=== PATIENT | male | born 1940 | race Caucasian/White ===

== ENCOUNTER 2018-10-12 15:32 | Inpatient (IN) ==
[2018-10-12] MEDS ORDERED: XYLOCAINE 2% JELLY UROJECT TOP ONE (17:40)
[2018-10-12 18:01] LABS: URINE SOURCE CATH
[2018-10-12 18:09] LABS: BILIRUBIN URINE NEGATIVE (NEGATIVE); BLOOD URINE NEGATIVE (NEGATIVE); COLOR YELLOW; GLUCOSE URINE NEGATIVE (NEGATIVE); KETONE URINE NEGATIVE (NEGATIVE); LEUKOCYTES URINE SMALL (NEGATIVE); NITRITE URINE NEGATIVE (NEGATIVE); PH URINE 5.5; PROTEIN URINE NEGATIVE (NEGATIVE); SP GRAVITY URINE 1.008; TURBIDITY URINE CLEAR (CLEAR); UR EPITHELIAL CELLS <10 /HPF (<10); URINE BACTERIA NEGATIVE /HPF; URINE RBC <10 /HPF (<10); UROBILINOGEN URINE NORMAL (NORMAL)
[2018-10-12] MEDS: NS 1,000 ML IV SCH (18:23)
--- NOTE | 2018-10-12 18:40 | CONSULTATION ---
DATE OF CONSULTATION: 10/12/2018 ATTENDING AND REFERRING PHYSICIAN: Dr. Ray. HISTORY OF PRESENT ILLNESS: This 77-year-old male has a history of enlarged prostate with obstructive voiding. He also has a remote history of urinary retention. He recently had an NM and has been on Lasix, Aldactone and also Eliquis and Plavix. He was seen in the Urology Clinic last week and he was given a prescription for Flomax 0.4 mg a day. The patient states he has not started that. His baseline creatinine is around 1.8 and several days ago it was found to be 4.4. His renal ultrasound revealed an enlarged prostate but his bladder was distended to 2055 mL. His postvoid residual was 1533 mL. He states he has been having a lot of urinary incontinence. He has had no hematuria. He has no history of kidney stones. PAST MEDICAL HISTORY: Coronary artery disease, hypertension, gastroesophageal reflux disease, elevated cholesterol. CURRENT MEDICATIONS: Documented on the chart and will include Flomax 0.4 mg a day. PAST SURGICAL HISTORY: Hernia repair, tonsillectomy and adenoidectomy, transrectal prostate ultrasound and biopsies secondary to an elevated PSA. SOCIAL HISTORY: No tobacco or alcohol use. ALLERGIES: He is allergic to penicillin. REVIEW OF SYSTEMS: He denies any recent chest pains, pulmonary or bowel problems. PHYSICAL EXAMINATION: General: A mildly obese, age apparent, normally developed, white male, oriented in all ways and cooperative. HEENT: Normal for age. Lungs: Clear. Cardiovascular: Regular rate and rhythm. Abdomen: Mildly obese, soft, nontender. No hepatosplenomegaly or masses. Normal bowel sounds. : Uncircumcised male. Foreskin retracts. Meatus is normal. Both testes are down. Small bilateral hydroceles. No inguinal hernias. Rectal: Exam on 10/05/2018 had normal sphincter tone. His prostate was about 70 g, smooth, and symmetric. Extremities: No clubbing, cyanosis, or edema. Neuro: No focal deficits. DIAGNOSTIC DATA: Renal ultrasound is as noted in the history of present illness. His CBC has a white count of 8.34, hemoglobin of 10.6, hematocrit of 33, and platelets are 275,000. Serum electrolytes are normal. BUN 25, creatinine 4.4. IMPRESSION: 1. Enlarged prostate with obstructive voiding as well as marked urinary retention. 2. Renal insufficiency. PLAN: 1. The patient was prepped and draped sterilely and approximately 20 mL of 2% viscous lidocaine was placed in the urethra and held for 5 minutes. The patient states he is very tender in that area. A 16-Macedonian Carolina catheter was gently passed through the patient's urethra and then manipulated through the large prostate and into the bladder. The Carolina was placed all the way to its hub. In just a minute, the urine returned through the Carolina catheter. It did appear clear. 10 mL sterile water were placed in the Carolina balloon. Urine will be obtained from the Carolina catheter for UA, C and S. 2. Flomax 0.4 mg a day 1st dose tonight. Thank you for this consultation. cc: MD Usman Khan MD
--- NOTE | 2018-10-12 19:37 | HISTORY AND PHYSICAL ---
CHIEF COMPLAINT: Obstructive uropathy. HISTORY OF PRESENT ILLNESS: Mr. Lerner is a 77-year-old white gentleman with multiple complex medical problems, including recent AL, CVA, hypertension, anemia, hyperlipidemia, gastritis, and reflux disease. Patient was in his usual state of health, recently discharged from [facility], then patient went to assisted for rehab. Patient went home a few days ago. Patient came to see me in the office. I did blood work which did reveal normal BUN, but creatinine in was around 4. I entertained possibility of obstructive uropathy. I repeated blood work. It was still abnormal. His BUN was 25 and creatinine 4.4. Potassium was 3.9. I did a renal ultrasound which did reveal evidence of enlarged prostate. Postvoid residual bladder urine volume was more than 1500 mL. Bilateral dilated renal collecting system of unknown acuity. On detailed questioning, patient did have urinary hesitancy, frequency, and bedtime incontinence. Patient's usual creatinines staying around 1.8 to 1.9. Patient denied any nausea or vomiting. No high- grade fever. Patient did have some chills. Because of worsening renal function and ultrasound suggestive of obstructive uropathy, I decided to admit the patient for further care. Patient denied any typical chest pain, palpitation, orthopnea, or PND. Mild cough. No expectoration or hemoptysis. No dysphagia or odynophagia, unquantified weight loss. No heat or cold intolerance. No runny nose, stuffy nose, sinus drainage. At times, arthritic pain in the knee. Clinically, patient was doing fairly well. He denied any blood in the urine, blood in the stool. No hemoptysis. No hematemesis. ALLERGIES: Penicillin. HOME MEDICATIONS: Include: 1. Plavix. 2. Eliquis. 3. Amiodarone. 4. Lasix. 5. Protonix. 6. Potassium. 7. Aldactone 25 mg. 8. Flomax. Patient took Flomax only 1 day, and then he stopped taking it because he was feeling dizzy. PERSONAL HISTORY: . Lives with the . Nonsmoker. Denied alcohol or substance abuse. Fairly independent in activities of daily living. PAST MEDICAL HISTORY: Significant for: 1. Coronary artery disease and CABG many years ago. 2. Recent acute inferior wall myocardial infarction, requiring stent placement. 3. Paroxysmal atrial fibrillation. 4. Congestive heart failure. Ejection fraction was about 20 to 25 percent. 5. BPH. 6. Hyperlipidemia. 7. Encephalopathy. 8. Acute kidney injury. FAMILY HISTORY: Significant for father had AL at age 74. PAST SURGICAL HISTORY: 1. Patient had CABG in 2003. 2. Hernia repair in the past. PHYSICAL EXAMINATION: GENERAL: Elderly white gentleman in no acute distress. VITAL SIGNS: Blood pressure 140/90, pulse 70, respirations 18, temperature normal. SKIN: Senile turgor. HEAD: Atraumatic, normocephalic. EYES: [place] conjunctivae. Anicteric sclerae. Extraocular muscle movement normal. Fundus cannot be penetrated. ENT: Good oral hygiene. No tonsillopharyngeal congestion or exudate. Ears and nose benign. NECK: Supple. No JVD, thyromegaly, or lymphadenopathy. CHEST: Bilateral good air entry present. Bibasilar crepitation. Occasional wheezing. CARDIOVASCULAR: S1 and S2, irregularly irregular. No gallop or thrill. ABDOMEN: Soft. No distention. Bowel sounds present. No organomegaly or mass. EXTREMITIES: No cyanosis, clubbing. No acute DVT. Peripheral pulsation intact. Minimal swelling around ankle. CONTACT CENTER ENGINEER: Alert, awake, able to move all 4 limbs. MUSCULOSKELETAL: No acute synovitis of the knee joints. LAB DATA: His BUN was 25, creatinine 4.4. Blood sugar was 104. ALT was 8. CBC: Hemoglobin 10.6, hematocrit 33, WBC count 8.34, platelet count 275,000. Urinalysis result reviewed. CONSIDERATION: 1. Obstructive uropathy. 2. Acute kidney injury. 3. Benign prostatic hypertrophy. 4. Recent myocardial infarction. 5. Paroxysmal atrial fibrillation. 6. Hypertension. 7. Congestive heart failure. Ejection fraction was around 22%. 8. Osteoarthritis. 9. Gastritis. 10. Reflux disease. 11. Acute on chronic kidney disease. 12. Cardiac arrhythmia. PLAN: 1. Admit patient. 2. Hydration. 3. Urology consult to put catheter because of enlarged prostate. 4. Fall precaution. 5. Repeat blood work in the morning. 6. Overall plan discussed with patient and . They are in agreement. Patient's presentation discussed with urologist, and he is going to consider putting Carolina catheter. cc: Usman Ray MD
[2018-10-12] MEDS ORDERED: FLOMAX PO SCH (21:00)
[2018-10-12] MEDS: ELIQUIS PO SCH (22:06)
[2018-10-12] MEDS: FLOMAX PO SCH (22:07)
[2018-10-13] MEDS: PROTONIX PO SCH (06:18)
--- NOTE | 2018-10-13 06:51 | PROGRESS NOTE ---
DATE: 10/13/2018 Mr. Lerner is feeling better. He denied any fever or chills. The patient had a little bit blood tinged urine. No nausea or vomiting. Oral intake is fair. No typical chest pain or unusual shortness of breath. The patient had 2750 mL of urine came out with his Carolina catheter. Patient admitted with urinary retention and obstructive uropathy. The patient had enlarged prostate. OBJECTIVE: Vital Signs: Blood pressure 112/58, pulse 71, respiration 18. Temperature 98.3 degrees. Neck: Is supple. No JVD. Lungs: Bilateral good air entry present. CVS: S1 and S2 heard. 2/6 systolic murmur at the apex. Abdomen: Soft, globular. Bowel sounds present. Extremities: No swelling in the legs. MATERIAL CHASER: Alert, awake able to move all 4 limbs. CONSIDERATIONS: 1. Urinary retention, most likely due to enlarged prostate. 2. Obstructive uropathy. 3. Patient had recent CT. 4. Paroxysmal atrial fibrillation. 5. History of CVA. 6. Hypothyroidism. PLAN: We will continue current treatment. Monitor his labs. Fall precaution. Discussed with Dr. Damico if clinical condition permits, we will plan discharging patient home tomorrow. Patient's urine had 10 to 20 WBC but nitrite was negative. Small leukocytosis. Waiting for urine culture. cc: Usman Ray MD
[2018-10-13 07:54] LABS: MCH 29.6 PG (27-31); MCHC 32.1 g/dL (33-37); MCV 92.1 FL (81-99); MPV 10.5 FL (7.4-10.4); RBC 3.04 XMIL (4.7-6.1); RDW 18.7 % (11.5-14.5); WBC 6.45 X1000 (4.8-10.8)
--- NOTE | 2018-10-13 08:06 | Diag Imaging Result Doc PS360 ---
EXAM: CHEST-2 VIEWS HISTORY: hypoxia TECHNIQUE: Chest two views COMPARISON: None. FINDINGS: The lungs are well expanded. The heart is not enlarged. There are sternal wires. The vessels are not distended. There are no infiltrates. Likely minimal scarring in the lungs. No pleural effusions. IMPRESSION: No acute abnormality. Electronically signed by Wilfred Benito 10/13/2018 8:04 AM
[2018-10-13 08:15] LABS: ALB/GLOB RATIO 0.9; ALBUMIN 3.1 g/dL (3.5-5.0); CALCIUM 8.7 mg/dL (8.8-10.2); CREATININE 3.7 mg/dL (0.7-1.2); POTASSIUM 3.6 mmol/L (3.5-5.1); TOTAL BILIRUBIN 0.37 mg/dL (0.20-1.00); TOTAL PROTEIN 6.5 g/dL (6.3-8.3)
[2018-10-13] MEDS ORDERED: LASIX PO SCH (09:00)
[2018-10-13 10:07] LABS: INR 1.39; PROTIME 17.3 Seconds (11.0-16.0); PTT 30.9 Seconds (22.3-41.8)
[2018-10-13] MEDS: CORDARONE PO SCH (10:27)
[2018-10-13] MEDS: ALDACTONE PO SCH (10:27)
[2018-10-13] MEDS: ELIQUIS PO SCH ×2 (10:28→19:59)
[2018-10-13] MEDS: KLOR-CON PO SCH (10:28)
[2018-10-13] MEDS: NS 1,000 ML IV SCH ×2 (10:31→20:00)
[2018-10-13] MEDS: PLAVIX PO SCH (17:23)
[2018-10-13] MEDS: FLOMAX PO SCH (19:59)
[2018-10-13 22:26] LABS: ALB/GLOB RATIO 1.1; ALBUMIN 3.3 g/dL (3.5-5.0); CALCIUM 8.6 mg/dL (8.8-10.2); CREATININE 3.5 mg/dL (0.7-1.2); POTASSIUM 3.6 mmol/L (3.5-5.1); TOTAL BILIRUBIN 0.29 mg/dL (0.20-1.00); TOTAL PROTEIN 6.4 g/dL (6.3-8.3)
[2018-10-14] MEDS: PROTONIX PO SCH (05:59)
[2018-10-14 06:22] LABS: BASO# 0.04 X1000 (0.0-0.2); BASO% 0.6 % (0.0-0.8); EOS# 0.49 X1000 (0.0-0.7); EOS% 7.5 % (0.0-10.0); HEMOGLOBIN 9.7 g/dL (14.0-18.0); LYMPH# 1.14 X1000 (1.2-3.4); LYMPH% 17.4 % (20.5-51.1); MCH 29.8 PG (27-31); MCHC 32.3 g/dL (33-37); MONO# 0.54 X1000 (0.11-0.59); MONO% 8.2 % (1.7-9.3); MPV 10.8 FL (7.4-10.4); NEUT# 4.35 X1000 (1.4-6.5); NEUT% 66.3 % (42.2-75.2); PLT 230 X1000 (130-400); RBC 3.26 XMIL (4.7-6.1); RDW 18.4 % (11.5-14.5); WBC 6.56 X1000 (4.8-10.8)
--- NOTE | 2018-10-14 07:13 | PROGRESS NOTE ---
DATE: 10/14/2018 SUBJECTIVE: Mr. Lerner is feeling better. He denied any fever or chills. No chest pain or palpitations. Denied any shortness of breath. No blood in the catheter. Oral intake is getting better. Leg swelling almost normal. OBJECTIVE: Vital Signs: Noted. Neck: Supple. No JVD. Lungs: Bilateral good air entry present. Cardiovascular: S1 and S2, irregular. A 2/6 systolic murmur at the apex. Abdomen: Soft, nontender. Bowel sounds present. Extremities: No cyanosis, clubbing. No acute DVT. CREATIVE WRITING PROFESSOR: Alert, awake. Able to move all 4 limbs. The patient presented with obstructive uropathy. His creatinine is gradually improving. The patient is getting gentle hydration. The patient does have systolic type congestive heart failure. Ejection fraction was around 22 to 25 percent. Recent myocardial infarction and stent placement. History of hyperlipidemia. Blood work done today. BUN was 24, creatinine 3.5, calcium 8.6, potassium 3.6. Overall plan discussed with patient and . ASSESSMENT: His problems includes: 1. Obstructive uropathy. 2. Congestive heart failure. 3. Coronary artery disease. 4. Osteoarthritis. 5. Paroxysmal atrial fibrillation. PLAN: Plan is to hopefully discharge patient home soon with a Carolina catheter. Follow up with Dr. Damico in the office. cc: Usman Ray MD
[2018-10-14] MEDS: CORDARONE PO SCH (08:11)
[2018-10-14] MEDS: ALDACTONE PO SCH (08:11)
[2018-10-14] MEDS: PLAVIX PO SCH (08:12)
[2018-10-14] MEDS: ELIQUIS PO SCH ×2 (08:12→20:17)
[2018-10-14] MEDS: KLOR-CON PO SCH (08:12)
[2018-10-14] MEDS: NS 1,000 ML IV SCH (10:26)
[2018-10-14 18:42] LABS: CALCIUM 8.4 mg/dL (8.8-10.2); CREATININE 2.5 mg/dL (0.7-1.2); POTASSIUM 3.6 mmol/L (3.5-5.1)
[2018-10-14] MEDS: FLOMAX PO SCH (20:17)
[2018-10-15] MEDS: PROTONIX PO SCH ×2 (05:47→06:32)
[2018-10-15] MEDS ORDERED: MAGNESIUM SULFATE 2 GM/S.W.I. 2 GM/50 ML IVPB IV ONE (06:32)
[2018-10-15] MEDS: KLOR-CON PO SCH (07:54)
[2018-10-15] MEDS: ALDACTONE PO SCH (07:55)
[2018-10-15] MEDS: CORDARONE PO SCH (07:55)
[2018-10-15] MEDS: ELIQUIS PO SCH (07:55)
[2018-10-15] MEDS: PLAVIX PO SCH (07:55)
[2018-10-15 08:06] VITALS: BP 123/73
--- NOTE | 2018-10-16 06:03 | DISCHARGE SUMMARY ---
ADMISSION DATE: 10/13/2018 DISCHARGE DATE: 10/15/2018 SUBJECTIVE: Mr. Lerner is feeling better. FINAL DISCHARGE DIAGNOSES: 1. Obstructive uropathy. 2. Enlarged prostate. 3. Recent myocardial infarction. 4. Atrial fibrillation. 5. Anemia of chronic disease. 6. Hypokalemia. 7. Gastritis and reflux disease. 8. Osteoarthritis. 9. Congestive heart failure due to systolic dysfunction and also diastolic dysfunction. 10. Benign prostatic hypertrophy. HISTORY: Mr. Lerner is a 77-year-old white gentleman admitted with obstructive uropathy. The patient had urinary retention and deterioration of the renal function. I repeated blood work and renal ultrasound. Renal ultrasound did reveal a urinary retention, and evidence of obstructive uropathy. I decided to admit the patient for further care. Urology consult obtained with Dr. Damico. The patient had a Carolina catheter placed. Clinically, patient is doing better. His renal function improved. The patient was feeling better. We taught the patient how to use the leg bag for Carolina catheter. I had lengthy discussion with the patient about Carolina catheter care and fall precautions, watch for bleeding as the patient is on Plavix and Eliquis. Patient and understood. Overall, patient received maximum benefit of hospitalization. The patient needed gentle hydration because of his congestive heart failure. Overall, the patient is doing better. I am planning to discharge him home today. Lab data done today, potassium was 3.6. His magnesium was 1.2. I am going to supplement magnesium. We are going to resume his home health. PHYSICAL EXAMINATION: Vital signs noted. Neck: Supple. No JVD. Lungs: Bilateral good air entry present. CVS: S1 and S2 heard. 2/6 systolic murmur at the apex. Abdomen: Soft, nontender. Bowel sounds present. HOGSHEAD ROLLER: Alert, awake, and able to move all 4 limbs. LABORATORY DATA: Last BUN was 20 and creatinine 2.5. Magnesium was 1.2. Admission was 20, creatinine 2.5, and magnesium 1.2. Overall, patient is doing better. His CBC revealed hemoglobin 9.7, hematocrit was 30. Advised patient to have follow up with me in 1 week. The patient have a followup appointment with Dr. Damico on the . He is going to give him a catheter trial. Patient is on Flomax. Continue home medicine. In case of more distress, call us back or go to the emergency room. cc: Usman Ray MD
== END 2018-10-15 10:00 | disposition home health service (06) | DRG 683 ==
LOC: DIRADM 15:32 → INTOOBSV 15:32 → 4N 15:40
PROVIDERS: ADMIT Internal Medicine; ATTEND Internal Medicine

== ENCOUNTER 2019-04-20 06:48 | Day surgery (SDC) ==
[2019-03-17 14:21] LABS: HEMATOCRIT 42.9 % (42.0-52.0); HEMOGLOBIN 13.6 g/dL (14.0-18.0); MCH 31.4 PG (27-31); MCHC 31.7 g/dL (33-37); MCV 99.1 FL (81-99); MPV 10.5 FL (7.4-10.4); RBC 4.33 XMIL (4.7-6.1); RDW 14.9 % (11.5-14.5); WBC 0.52 X1000 (4.8-10.8)
[2019-03-17 16:49] LABS: CALCIUM 9.2 mg/dL (8.8-10.2); CREATININE 1.5 mg/dL (0.7-1.2)
[2019-04-20] MEDS ORDERED: DIPRIVAN 1% ONE (07:35)
[2019-04-20] MEDS ORDERED: LEVAQUIN 500 MG/D5W 500 MG/100 ML IVPB ONE (07:45)
[2019-04-20] MEDS ORDERED: LR 1,000 ML ONE (07:45)
[2019-04-20] MEDS ORDERED: PEPCID ONE (08:27)
[2019-04-20] MEDS ORDERED: REGLAN ONE (08:27)
[2019-04-20] MEDS ORDERED: B & O 15A SUPP ONE (09:28)
[2019-04-20] MEDS ORDERED: FENTANYL ONE (09:31)
[2019-04-20] MEDS ORDERED: ZOFRAN ONE (10:07)
[2019-04-20] MEDS ORDERED: DECADRON ONE (10:07)
[2019-04-20] MEDS ORDERED: EPHEDRINE ONE (10:08)
[2019-04-20] MEDS ORDERED: ZEMURON ONE ×3 (10:08→11:59)
[2019-04-20] MEDS ORDERED: ROBINUL ONE (12:36)
[2019-04-20] MEDS ORDERED: NEOSTIGMINE ONE (12:36)
--- NOTE | 2019-04-20 14:41 | OPERATIVE NOTE ---
PROCEDURE DATE: 04/20/2019 SURGEON: Madhu Damico MD. PREOPERATIVE DIAGNOSIS: Urinary retention secondary to an enlarged prostate. POSTOPERATIVE DIAGNOSIS: Urinary retention secondary to an enlarged prostate. PROCEDURE PERFORMED: 1. Cystoscopic exam, Transurethral section of the prostate. 2. Place suprapubic tube. ANESTHESIA: General via laryngeal mask. FINDINGS: Cystoscopic exam: Urethra - greater than 27-Czech without stricture. Prostate - collapsing lateral lobes, elevated bladder neck, large median lobe. Length approximately 7 cm. Bladder - normal ureteral orifices bilaterally. Grade 1 to 2 trabeculations. No diverticula. INDICATION FOR PROCEDURE: This 78-year-old male has a long history of obstructive voiding symptoms. He was on maximum medical therapy and developed urinary retention. He has had an indwelling Carolina catheter and has decided on transurethral resection of the and placement of a suprapubic tube. DESCRIPTION OF PROCEDURE: After informed consent was obtained the patient and him receiving IV antibiotics, he was taken the main OR cystoscopy room, placed in supine position. General anesthesia via laryngeal mask was achieved. He was then placed in the low lithotomy position and prepped and draped in the usual sterile fashion for lower abdominal surgery and cystoscopic exam. A 21-Czech sheath cystoscope was passed through the patient's urethra, prostate and into the bladder with findings noted above. The cystoscope was removed. A 27-Czech continuous flow resectoscope sheath was placed. The bipolar loop was placed. Both ureteral orifices were visualized as well as the verumontanum. The median lobe was taken down and then the resection was started at the 6 o'clock position, going from the level of the bladder neck to the level of the verumontanum, proceeding in a counterclockwise direction up to the 2 o'clock position. There were very large lateral lobes but these were completely taken down. After the 2 o'clock the patient was reached, the resection was started back down at the 6 o'clock position, going to the level of the bladder neck, level of the verumontanum, proceeding in a clockwise direction up to the 10 o'clock position. Tissue from the anterior prostatic urethra was removed between the 2 o'clock and 10 o'clock position at the level of bladder neck, level of the verumontanum. The chips were removed from the bladder with the [employer] evacuators. Hemostasis was achieved with electrocautery. After the chips were completely removed, again, both ureteral orifices were visualized and intact, the verumontanum was visualized and intact. The bladder was left distended. A stab incision was made 2 fingerbreadths above the pubic bone. The [place] suprapubic tube introducer was passed through the stab incision and into the bladder under direct vision. The trocar was removed. A 16- Czech Carolina was passed through the trocar and into the bladder. 10 mL sterile water were placed in the Carolina balloon. The trocar was removed. The suprapubic tube was sutured to the skin with 0 silk. A plug was placed. The resectoscope sheath was removed. A 24-Czech 3-way Carolina was passed through the patient's urethra, prostate, into the bladder. 40 mL of sterile water were placed in the Carolina' balloon and Carolina was placed to gravity drain. The efflux was light kristan in color. Continuous bladder irrigation of normal saline was started. The efflux completely cleared. A 16-A B and O suppository was placed per rectum. He tolerated the procedure well. Estimated blood loss 400 mL. He was taken to recovery room in good condition. cc: Madhu Damico MD
[2019-04-20] MEDS ORDERED: LABETALOL IV PRN (14:45)
[2019-04-20] MEDS ORDERED: BENADRYL LIQUID PO PRN (14:45)
[2019-04-20] MEDS ORDERED: NORCO-10 PO PRN (14:45)
[2019-04-20] MEDS ORDERED: B & O 15A SUPP PR PRN (14:45)
[2019-04-20] MEDS ORDERED: NS 1,000 ML IV SCH (14:45)
[2019-04-20] MEDS ORDERED: NORCO-7.5 PO PRN (14:45)
[2019-04-20] MEDS ORDERED: NORCO-5 PO PRN (14:45)
[2019-04-20] MEDS ORDERED: SODIUM CHLORIDE 0.9% INJ PRN (15:00)
[2019-04-20] MEDS ORDERED: PHENERGAN IV PRN (15:00)
[2019-04-20] MEDS ORDERED: NITROGLYCERIN SL PRN (15:09)
[2019-04-20] MEDS ORDERED: PNEUMOVAX 23 IM ONE (16:56)
[2019-04-20] MEDS ORDERED: LIPITOR PO SCH (21:00)
[2019-04-20] MEDS: COLACE PO SCH (21:02)
[2019-04-20] MEDS: PEPCID PO SCH (21:02)
[2019-04-20] MEDS: PERIDEX MT SCH (21:03)
[2019-04-20] MEDS: ENTRESTO 24 MG-26 MG TABLET PO SCH (21:46)
[2019-04-21 08:15] VITALS: BP 118/56
[2019-04-21 08:30] LABS: HEMATOCRIT 32.2 % (42.0-52.0); HEMOGLOBIN 10.5 g/dL (14.0-18.0); MCH 31.6 PG (27-31); MCHC 32.6 g/dL (33-37); MPV 11.2 FL (7.4-10.4); RBC 3.32 XMIL (4.7-6.1); RDW 14.6 % (11.5-14.5); WBC 11.86 X1000 (4.8-10.8)
[2019-04-21] MEDS ORDERED: PATIENT'S OWN MED PO SCH (09:00)
[2019-04-21] MEDS ORDERED: LIPITOR PO SCH (09:00)
[2019-04-21] MEDS ORDERED: ENTRESTO 24 MG-26 MG TABLET PO SCH (09:00)
[2019-04-21] MEDS ORDERED: MAG-OX PO SCH (09:00)
[2019-04-21 09:12] LABS: CALCIUM 8.6 mg/dL (8.8-10.2); CREATININE 1.3 mg/dL (0.7-1.2); POTASSIUM 4.6 mmol/L (3.5-5.1)
[2019-04-21] MEDS: ENTRESTO 24 MG-26 MG TABLET PO SCH (09:51)
[2019-04-21] MEDS: PEPCID PO SCH (09:51)
[2019-04-21] MEDS: COLACE PO SCH (09:51)
[2019-04-21] MEDS: PERIDEX MT SCH (09:51)
== END 2019-04-21 11:33 | disposition home or self-care (01) ==
LOC: PAT 06:48 → 4N 06:48 → OPS 06:48
PROVIDERS: ATTEND Urology
PROC: UR.TURP (2019-04-20 09:40)